=== PATIENT | female | born 1975 | race Caucasian/White ===

== ENCOUNTER 2022-11-02 08:02 | Outpatient (CLI) | payer MEDICAID ==
[2022-11-02] VITALS (17 sets, daily range): BP systolic 106–136; BP diastolic 69–98
== END 2022-11-02 23:59 | disposition home or self-care (01) ==
LOC: CARD DIAG 08:02
PROVIDERS: ATTEND Internal Medicine Interventional Cardiology
DX: R55 Syncope and collapse (principal)
CPT/HCPCS: 93660